=== PATIENT | male | born 1975 | race Caucasian/White ===

== ENCOUNTER → 2020-05-15 | Outpatient (CLI) | payer OTHER ==
--- NOTE | 2020-05-16 00:43 | CT ---
EXAMINATION TYPE: CT angio chest DATE OF EXAM: 05/15/2020 COMPARISON: None HISTORY: Hypertension and history of AAA. Recent left sided rib injury. CT DLP: 939.7 mGycm Automated exposure control for dose reduction was used. CONTRAST: Performed without and with IV Contrast, patient injected with 100ml mL of Isovue 370. There are 3-D post processed images. Exam performed without and with IV contrast. The lungs are clear of infiltrate. There is no pleural effusion or pneumothorax. There is no mediasti nal adenopathy. There are no hilar masses. There is 4.8 cm aneurysm of the ascending aorta. There is no dissection. There is normal contrast opacification of the pulmonary arteries. I see no filling defect. Upper abdo adalberto soft tissues are intact. The bony thorax is intact. There is no compression fracture. Sternum is intact. The left ribs appear intact. Shoulder joints are intact. IMPRESSION: There is 4.8 cm aneurysm of the ascending aorta.
== END | disposition home or self-care (01) ==
LOC: RADCTMAIN 16:49
PROVIDERS: ATTEND Internal Medicine Interventional Cardiology
DX: I71.2 Thoracic aortic aneurysm, without rupture (principal); I10 Essential (primary) hypertension; I71.4 Abdominal aortic aneurysm, without rupture
CPT/HCPCS: 71275; Q9967

== ENCOUNTER 2020-10-11 17:20 | Emergency (ER) | payer OTHER ==
[2020-10-11 17:26] VITALS: BP 136/94; PULSE 70; RESP 20; TEMP 97.6
--- NOTE | 2020-10-11 18:21 | XR ---
EXAMINATION TYPE: XR foot complete RT DATE OF EXAM: 10/11/2020 CLINICAL HISTORY: pain TECHNIQUE: Frontal, lateral and oblique images of the right foot are obtained. COMPARISON: None. FINDINGS: There is no acute fracture/dislocation evident. The joint spaces appear within normal pérez its. The overlying soft tissue appears unremarkable. IMPRESSION: There is no acute fracture or dislocation. ICD 10 NO FRACTURE, INITIAL EVALUATION
--- NOTE | 2020-10-11 18:41 | ED ---
Extremity Problem HPI - General Chief complaint: Extremity Problem,Nontraumatic Stated complaint: Ankle injury Time Seen by Provider: 10/11/20 17:27 Source: patient Mode of arrival: ambulatory Limitations: no limitations - History of Present Illness Initial comments: 45-year-old male presents to emergency Department with a chief complaint of right foot pain and swelling. Patient reports this started over the last several days. States he is very physically active and believes might have injured her foot due to repetitive motion. Patient reports some ecchymosis near the first MTP joint. But denies any significant erythema to the region. Does report some swelling but no exact injury to the foot. He reports full range of motion in his ankle and no pain in his malleoli. Denies any paresthesias or weakness. Denies any Pain chest pain or shortness of breath. No history DVT. - Related Data Allergies Allergy/AdvReac Type Severity Reaction Status Date / Time Penicillins Allergy Anaphylaxis Verified 10/11/20 17:26 Review of Systems ROS Statement: Those systems with pertinent positive or pertinent negative responses have been documented in the HPI. ROS Other: All systems not noted in ROS Statement are negative. Past Medical History Additional Past Medical History / Comment(s): Aortic aneurys History of Any Multi-Drug Resistant Organisms: None Reported Past Surgical History: No Surgical Hx Reported Past Psychological History: No Psychological Hx Reported Smoking Status: Never smoker Past Alcohol Use History: None Reported Past Drug Use History: None Reported General Exam Limitations: no limitations General appearance: alert, in no apparent distress Head exam: Present: atraumatic, normocephalic, normal inspection Eye exam: Present: normal appearance, PERRL, EOMI Pupils: Present: normal accommodation ENT exam: Present: normal exam, normal oropharynx, mucous membranes moist Neck exam: Present: normal inspection, full ROM. Absent: tenderness Respiratory exam: Present: normal lung sounds bilaterally. Absent: respiratory distress Cardiovascular Exam: Present: regular rate, normal rhythm, normal heart sounds Extremities exam: Present: full ROM, tenderness (Tenderness over the mid foot. No fifth metatarsal tenderness.), normal capillary refill, other (Palpable DP and PT bilaterally). Absent: normal inspection (Mild swelling of the right foot with ecchymosis on the first MTP joint. No signs of gout), pedal edema, joint swelling, calf tenderness Back exam: Present: normal inspection, full ROM Neurological exam: Present: alert, oriented X3, normal gait Psychiatric exam: Present: normal affect, normal mood Skin exam: Present: warm, dry, intact, normal color Course Vital Signs 10/11/20 17:22 Temperature 97.6 F Pulse Rate 70 Respiratory 20 Rate Blood Pressure 136/94 O2 Sat by Pulse 99 Oximetry Medical Decision Making - Medical Decision Making 45-year-old male presents to emergency Department with a chief complaint of foot pain and swelling. X-rays unremarkable. I do suspect a possible stress fracture of the foot due to his repetitive motion for running and biking. Advised him to follow with weatherization specialist. Strict return parameters were thoroughly discussed the patient's attending agreeable. Case discussed with Dr. Ibarra. Disposition Clinical Impression: Foot swelling, Foot pain Disposition: HOME SELF-CARE Condition: Stable Instructions (If sedation given, give patient instructions): Swollen Joint (ED) Additional Instructions: Please return to the Emergency Department if symptoms worsen or any other concerns. Follow with weatherization specialist. Is patient prescribed a controlled substance at d/c from ED?: No Referrals: Velasquez Ramirez MD [Primary Care Provider] - 1-2 days Jamison Nunes MD [STAFF PHYSICIAN] - 1-2 days Time of Disposition: 18:41
== END 2020-10-11 19:05 | disposition home or self-care (01) ==
LOC: EC 17:20
DX: M79.671 Pain in right foot (principal); M79.89 Other specified soft tissue disorders; Z88.0 Allergy status to penicillin
CPT/HCPCS: 99283